=== PATIENT | female | born 1950 | race Caucasian/White ===

== ENCOUNTER 2016-09-05 13:04 | Emergency (ER) | payer OTHER ==
[~2016-09-05] VITALS: Ht 165.1 cm; Wt 68.0 kg
--- NOTE | 2016-09-05 14:16 | RADIOLOGY REPORT ---
EXAMINATION: XR LUMBOSACRAL SPINE CLINICAL INFORMATION: Trauma. COMPARISON: 09/08/2014 TECHNIQUE: 2 views of the lumbosacral spine FINDINGS: There is posterior fusion hardware at L4-L5. The hardware appears intact. Intervertebral disc spacer is present. No evidence of acute fracture. Vertebral body heights are maintained. There is new severe disc height loss at L3-L4 with endplate sclerosis. Mild narrowing is seen at L1-L2. The sacroiliac joints are intact. The visualized portion of the sacrum is intact. There is mild right convex scoliotic curvature of the lumbar spine. The visualized bowel gas pattern is nonobstructive. Stool throughout the colon. IMPRESSION: No acute fracture or malalignment. Posterior fusion at L4-L5 with intact hardware. New loss of disc space at L3-L4 with endplate sclerosis when compared to the study from 09/08/2014.
--- NOTE | 2016-09-05 14:18 | RADIOLOGY REPORT ---
EXAMINATION: XR HAND, RIGHT CLINICAL INFORMATION: Trauma COMPARISON: None TECHNIQUE: AP, lateral, and oblique views of the right hand. FINDINGS: There is a well-corticated ossific density along the dorsal ulnar aspect of the second proximal interphalangeal joint. No fracture. Alignment is anatomic. Joint spaces are maintained. No erosions. IMPRESSION: Well-corticated ossific density along the dorsal ulnar aspect of the second proximal interphalangeal joint. This could represent an osteophyte, capsular calcification, or intra-articular body. It is well corticated suggesting it is a chronic abnormality. It does not have the appearance of a fracture. Recommend correlation with the site of the patient's pain. No acute osseous abnormality seen.
--- NOTE | 2016-09-05 15:08 | ED MVC/FALL/TRAUMA COMPLAINT ---
History of Present Illness General Chief Complaint: Low Back Pain/Injury Stated Complaint: FELL DOWN STAIRS TODAY LOWER RIGHT SIDE BACK PAIN Source: patient, family Exam Limitations: no limitations Vital Signs & Intake/Output Vital Signs & Intake/Output Vital Signs Date Time Temp Pulse Resp B/P Pulse O2 O2 Flow FiO2 Ox Delivery Rate 09/05 1315 99.4 91 20 106/70 97 Room Air Allergies Coded Allergies: NO KNOWN ALLERGIES (09/05/16) Reconcile Medications Cyclobenzaprine HCl 10 MG TABLET 1 TAB PO QPM MUSCLE SPASM Cyclobenzaprine HCl 10 MG TABLET 1 TAB PO TID PRN SPASM Naproxen 500 MG TABLET 1 TAB PO BID PRN PAIN TAKE WITH FOOD Naproxen 500 MG TABLET 1 TAB PO BID PRN PAIN TAKE WITH FOOD Oxycodone HCl/Acetaminophen (Percocet 5-325 MG Tablet) 5 MG-325 MG TABLET 1 TAB PO Q4-6 PRN BREAKTHROUGH PAIN Oxycodone HCl/Acetaminophen (Percocet 5-325 MG Tablet) 5 MG-325 MG TABLET 1 TAB PO Q4-6 PRN BREAKTHROUGH PAIN Triage Note: FELL DOWN 6 STEPS THIS MORNING INJURING LOWER BACK. PT DENIES NECK PAIN. PT STATES SHE HAS 3 TITANIUM SCREWS IN HER LOWER BACK. PT ALSO STATES SHE INJURED RIGHT HAND. DENIES HEADSTRIKE, DENIES BLOOD THINNERS Triage Nurses Notes Reviewed? yes Onset: Abrupt Duration: THIS MORNING Timing: single episode today Severity: severe Injuries/Fall Location: back Method of Injury: fall Loss of Consciousness: no loss of consciousness Modifying Factors: Worsens With: movement. Associated Symptoms: muscle spasms HPI: This is a 66-year-old female presents to the chief complaint of severe right lumbar pain after slip and fall this morning down 6 stairs. She states she was coming down the stairs and lost her footing and went down onto her buttock and hand. At the bottom of the stairs she had hard time getting up and she was lifted up by 2 people to her feet. Throughout the day she thought the pain would get better but she did not take anything for it. This afternoon when it was persistently worse she decided to come in for evaluation. History of lumbar surgery 3 or 4 years ago. Denies any numbness or weakness in her legs. Positive pain with right leg raise. No numbness or tingling. No lumbar pain prior to the fall this morning. She denies any chronic pain. Past History Travel History Traveled to [place] past 21 day No Medical History Any Pertinent Medical History? see below for history Musculoskeletal: previous back pain/surgery Surgical History Surgical History: non-contributory Psychosocial History What is your primary language Guyanese Tobacco Use: Never used ETOH Use: denies use Illicit Drug Use: denies illicit drug use Family History Hx Contributory? No Review of Systems Review of Systems Constitutional: Denies: chills, fever. Eyes: Reports: no symptoms. Ears, Nose, Throat, Mouth: Reports: no symptoms. Respiratory: Denies: cough, short of breath. Cardiovascular: Denies: chest pain, palpitations. Gastrointestinal/Abdominal: Denies: abdominal pain. Genitourinary: Reports: no symptoms. Musculoskeletal: Reports: back pain, muscle pain, muscle stiffness. Skin: Reports: no symptoms. Neurological/Psychological: Reports: anxiety. Denies: headache, numbness. All Other Systems: Reviewed and Negative Physical Exam Physical Exam General Appearance: well developed/nourished, alert, awake, anxious, mild distress Head: atraumatic, normal appearance Eyes: Bilateral: normal appearance, PERRL, EOMI. Ears, Nose, Throat, Mouth: hearing grossly normal, moist mucous membrane Neck: normal inspection, supple, full range of motion Respiratory: normal breath sounds, chest non-tender, no respiratory distress Cardiovascular: regular rate/rhythm Peripheral Pulses: 2+ radial (R), 2+ radial (L) Gastrointestinal: normal bowel sounds, soft, non-tender Back: normal inspection, muscle spasm Extremities: RIGHT HAND PAIN, FULL RANGE OF MOTION Neurologic/Psych: no motor/sensory deficits, awake, alert, oriented x 3, normal mood/affect, antalgic gait, NO FOCAL NEURO DEFICIT Skin: intact, normal color, warm/dry Core Measures ACS in differential dx? No Severe Sepsis Present: No Septic Shock Present: No Progress Differential Diagnosis: C/T/L spine injury, ext injury, LUMBAR CONTUSION, COMPRESSION FRACTURE, SCIATICA Plan of Care: Orders Procedure Date/time Status CT LUMB SPINE WO IV CONTRAST 09/05 1508 Active Current Medications Sig/Ian Start time Last Medication Dose Stop Time Status Admin Diazepam 5 MG ONCE ONE 09/05 1515 UNVr (Valium) 09/05 1516 Ketorolac 30 MG ONCE ONE 09/05 1515 UNVr Tromethamine 09/05 1516 (Toradol) Diagnostic Imaging: Viewed by Me: Radiology Read, CT Scan. Discussed w/RAD: Radiology Read, CT Scan. Comments: PATIENT: FRANCES ANDINO PRESENT AGE: 66 PATIENT ACCOUNT NO: [id number] : 51 LOCATION: ER ORDERING PHYSICIAN: LAILA ALEJANDRO DO (TBS) SERVICE DATE: 09/05/16 EXAM TYPE: RAD - XRY-HAND, RIGHT EXAMINATION: XR HAND, RIGHT CLINICAL INFORMATION: Trauma COMPARISON: None TECHNIQUE: AP, lateral, and oblique views of the right hand. FINDINGS: There is a well-corticated ossific density along the dorsal ulnar aspect of the second proximal interphalangeal joint. No fracture. Alignment is anatomic. Joint spaces are maintained. No erosions. IMPRESSION: Well-corticated ossific density along the dorsal ulnar aspect of the second proximal interphalangeal joint. This could represent an osteophyte, capsular calcification, or intra-articular body. It is well corticated suggesting it is a chronic abnormality. It does not have the appearance of a fracture. Recommend correlation with the site of the patient's pain. No acute osseous abnormality seen. DICTATED BY: CARLINE CONNELL MD DATE/TIME DICTATED:09/05/161408 PRECISION DEVICES INSPECTOR/TESTER:JAMES DATE/TIME TRANSCRIBED:09/05/161408 CONFIDENTIAL, DO NOT COPY WITHOUT APPROPRIATE AUTHORIZATION. <Electronically signed in Other Vendor System> SIGNED BY: CARLINE CONNELL MD [id number] PATIENT: FRANCES ANDINO PRESENT AGE: 66 PATIENT ACCOUNT NO: [id number] : 51 LOCATION: ER ORDERING PHYSICIAN: LAILA ALEJANDRO DO (TBS) SERVICE DATE: 09/05/16 EXAM TYPE: RAD - XRY-LUMBOSACRAL SPINE AP & LAT EXAMINATION: XR LUMBOSACRAL SPINE CLINICAL INFORMATION: Trauma. COMPARISON: 09/08/2014 TECHNIQUE: 2 views of the lumbosacral spine FINDINGS: There is posterior fusion hardware at L4-L5. The hardware appears intact. Intervertebral disc spacer is present. No evidence of acute fracture. Vertebral body heights are maintained. There is new severe disc height loss at L3-L4 with endplate sclerosis. Mild narrowing is seen at L1-L2. The sacroiliac joints are intact. The visualized portion of the sacrum is intact. There is mild right convex scoliotic curvature of the lumbar spine. The visualized bowel gas pattern is nonobstructive. Stool throughout the colon. IMPRESSION: No acute fracture or malalignment. Posterior fusion at L4-L5 with intact hardware. New loss of disc space at L3-L4 with endplate sclerosis when compared to the study from 09/08/2014. DICTATED BY: SIMON DUCKWORTH MD DATE/TIME DICTATED:09/05/161408 PRECISION DEVICES INSPECTOR/TESTER:JAMES DATE/TIME TRANSCRIBED:09/05/161408 CONFIDENTIAL, DO NOT COPY WITHOUT APPROPRIATE AUTHORIZATION. <Electronically signed in Other Vendor System> SIGNED BY: SIMON DUCKWORTH MD 09/05 141 PATIENT: FRANCES ANDINO PRESENT AGE: 66 PATIENT ACCOUNT NO: [id number] : 51 LOCATION: [facility] ORDERING PHYSICIAN: JOSE ANTONIO PENA MD SERVICE DATE: 09/05/16 EXAM TYPE: CAT - CT LUMB SPINE WO IV CONTRAST EXAMINATION: CT LUMBAR SPINE WITHOUT CONTRAST CLINICAL INFORMATION: Evaluate for compression fracture. COMPARISON: Multiple priors, most recently radiographs from today. TECHNIQUE: Helical non-contrast CT images were obtained through the lumbar spine and 1.25 and 2.5 mm axial reconstructions were reviewed along with sagittal and coronal MPRs. DLP: 353 mGy-cm. FINDINGS: There is posterior fusion hardware at L4-L5 with posterior decompression at this level. There is an intervertebral disc spacer in place. Hardware is intact. There is no evidence of acute vertebral body fracture. Vertebral body heights are maintained. There is dextroscoliosis of the lumbar spine. Alignment is otherwise maintained. There is complete loss of the disc space at L3-L4. This finding was seen on the recent radiograph. This is new from the most recent lumbar spine imaging which was MRI performed 12/29/2014. There is prominent endplate sclerosis with prominent Schmorl's nodes/cyst formation. This is a significant change from previous. Erosions are not excluded. Mild disc space narrowing is noted at L1-L2. Small endplate osteophytes are present. There is a nondisplaced fracture of the right L1 transverse process. The disc levels are not well evaluated on this study and MRI could be performed for disc level evaluation if indicated. IMPRESSION: 1. Nondisplaced right L1 transverse process fracture. 2. Intact posterior fusion hardware at L4-L5. No vertebral body compression deformity. 3. Complete loss of the disc height at L3-L4, new compared to the most recent imaging from 12/29/2014. Associated sclerotic change with endplate cystic change versus erosions. This could be the sequela of discitis osteomyelitis versus interval development of advanced degenerative change. DICTATED BY: SIMON DUCKWORTH MD DATE/TIME DICTATED:09/05/161537 PRECISION DEVICES INSPECTOR/TESTER:JAMES DATE/TIME TRANSCRIBED:09/05/161537 CONFIDENTIAL, DO NOT COPY WITHOUT APPROPRIATE AUTHORIZATION. <Electronically signed in Other Vendor System> SIGNED BY: SIMON DUCKWORTH MD 09/05 1549 Departure Departure Time of Disposition: 1709 Disposition: HOME OR SELF CARE Condition: Stable Clinical Impression Primary Impression: Lumbar contusion Referrals: ORION GARCIA,JAMES Bruce (PCP/Family) Additional Instructions: Take the naproxen, Flexeril and Percocet as directed. Please follow-up with your orthopedic surgeon regarding the copy of the CAT scan findings from today. Return to the ER for any changing or worsening symptoms, worsening pain, fever or chills. Departure Forms: Customer Survey General Discharge Information Prescriptions: Current Visit Scripts Cyclobenzaprine HCl 1 TAB PO QPM #30 TAB Naproxen 1 TAB PO BID PRN PAIN #30 TAB TAKE WITH FOOD Oxycodone HCl/Acetaminophen (Percocet 5-325 MG Tablet) 1 TAB PO Q4-6 PRN BREAKTHROUGH PAIN #15 Oxycodone HCl/Acetaminophen (Percocet 5-325 MG Tablet) 1 TAB PO Q4-6 PRN BREAKTHROUGH PAIN #15 TAB Cyclobenzaprine HCl 1 TAB PO TID PRN SPASM #30 TAB Naproxen 1 TAB PO BID PRN PAIN #30 TAB TAKE WITH FOOD
--- NOTE | 2016-09-05 15:49 | CT SCAN REPORT ---
EXAMINATION: CT LUMBAR SPINE WITHOUT CONTRAST CLINICAL INFORMATION: Evaluate for compression fracture. COMPARISON: Multiple priors, most recently radiographs from today. TECHNIQUE: Helical non-contrast CT images were obtained through the lumbar spine and 1.25 and 2.5 mm axial reconstructions were reviewed along with sagittal and coronal MPRs. DLP: 353 mGy-cm. FINDINGS: There is posterior fusion hardware at L4-L5 with posterior decompression at this level. There is an intervertebral disc spacer in place. Hardware is intact. There is no evidence of acute vertebral body fracture. Vertebral body heights are maintained. There is dextroscoliosis of the lumbar spine. Alignment is otherwise maintained. There is complete loss of the disc space at L3-L4. This finding was seen on the recent radiograph. This is new from the most recent lumbar spine imaging which was MRI performed 12/29/2014. There is prominent endplate sclerosis with prominent Schmorl's nodes/cyst formation. This is a significant change from previous. Erosions are not excluded. Mild disc space narrowing is noted at L1-L2. Small endplate osteophytes are present. There is a nondisplaced fracture of the right L1 transverse process. The disc levels are not well evaluated on this study and MRI could be performed for disc level evaluation if indicated. IMPRESSION: 1. Nondisplaced right L1 transverse process fracture. 2. Intact posterior fusion hardware at L4-L5. No vertebral body compression deformity. 3. Complete loss of the disc height at L3-L4, new compared to the most recent imaging from 12/29/2014. Associated sclerotic change with endplate cystic change versus erosions. This could be the sequela of discitis osteomyelitis versus interval development of advanced degenerative change.
[2016-09-05] MEDS ORDERED: PERCOCET 5-3251 EACH PO ×2 (17:11→17:12)
[2016-09-05] MEDS ORDERED: NAPROXEN500 M2 PO ×2 (17:11→17:12)
[2016-09-05] MEDS ORDERED: CYCLOBENZAPRINE10 M1 PO ×2 (17:11→17:12)
[2016-09-05 18:29] VITALS: BP 114/59
== END 2016-09-05 18:30 ==
LOC: ERH 13:04
DX: S30.0XXA Contusion of lower back and pelvis, initial encounter (principal); W10.9XXA Fall (on) (from) unspecified stairs and steps, initial encounter
CPT/HCPCS: 72100; 73130-RT; 96374; 96375; J1885; J3360